=== PATIENT | male | born 1990 | race Caucasian/White ===

== ENCOUNTER 2021-03-01 09:55 | Inpatient (IN) | payer MEDICAID ==
[~2021-03-01] VITALS: Ht 167.6 cm; Wt 84.5 kg
[2021-03-01 10:30] LABS: COVID AG,FIA SOURCE NASOPHARYNGEAL
[2021-03-01 10:40] LABS: AMPHET/METH SCREEN,URINE NEGATIVE (NEGATIVE); BARBITURATE SCREEN, URINE NEGATIVE (NEGATIVE); BENZODIAZEPINES SCREEN,URINE NEGATIVE (NEGATIVE); CANNABINOID SCREEN,URINE NEGATIVE (NEGATIVE); COCAINE SCREEN,URINE NEGATIVE (NEGATIVE); METHADONE SCREEN, URINE NEGATIVE (NEGATIVE); OPIATE SCREEN,URINE NEGATIVE (NEGATIVE)
[2021-03-01 10:41] LABS: PHENCYCLIDINE SCREEN,URINE NEGATIVE (NEGATIVE)
[2021-03-01 11:24] LABS: BASOPHILS % (AUTO) 0.3 % (0.0-2.0); EOSINOPHILS % (AUTO) 0.3 % (1.0-6.0); HEMATOCRIT 49.2 % (41-53); HEMOGLOBIN 16.4 g/dL (13.5-17.5); LYMPHOCYTES # (AUTO) 1.8 K/uL (1.0-4.8); LYMPHOCYTES % (AUTO) 14.4 % (22.0-44.0); MEAN CORPUSCULAR HEMOGLOBIN 31.3 pg (26.0-34.0); MEAN CORPUSCULAR HGB CONC 33.4 G/dL (31.0-37.0); MEAN CORPUSCULAR VOLUME 94 fL (80-100); MONOCYTES % (AUTO) 7.6 % (2.0-9.0); NEUTROPHILS # (AUTO) 9.9 K/uL (1.8-7.7); NEUTROPHILS % (AUTO) 77.4 % (40.0-70.0); PLATELET COUNT (AUTO) 308 K/uL (150-450); RED BLOOD CELL COUNT(AUTO) 5.26 MIL/uL (4.50-5.90); RED CELL DISTRIBUTION WIDTH 13.8 % (11.5-14.5)
[2021-03-01 11:41] LABS: ANION GAP 11 mmol/L (8-16); CALCIUM, TOTAL 9.7 mg/dL (8.8-10.5); CARBON DIOXIDE 30 mmol/L (22-29); CHLORIDE 102 mmol/L (98-107); CREATININE 0.85 mg/dL (0.60-1.30); GLOMERULAR FILTR. RATE CALC > 60 mL/min (>60); GLUCOSE,RANDOM 99 mg/dL (70-110); POTASSIUM 4.4 mmol/L (3.5-5.1); SODIUM SERUM 143 mmol/L (136-145); UREA NITROGEN, BLOOD 8 mg/dL (7-18)
[2021-03-01 11:46] LABS: ALANINE AMINOTRANSFERASE 70 U/L (12-78); ALBUMIN 4.8 g/dL (3.4-5.0); ALKALINE PHOSPHATASE 127 U/L (46-116); ASPARTATE AMINOTRANSFERASE 26 U/L (15-37); BILIRUBIN,TOTAL 0.2 mg/dL (0.1-1.0); TOTAL PROTEIN, SERUM 8.9 g/dL (6.4-8.2)
[2021-03-01] MEDS ORDERED: LORazepam 1 MG TABLET PO ONE (12:15)
[2021-03-01] MEDS ORDERED: NICOTINE 14 MG/24 HOUR PATCH TD ONE (12:15)
[2021-03-01 14:02] VITALS: BP 135/92
[2021-03-01] MEDS ORDERED: PETROLATUM,WHITE 28 GM JELLY TP PRN (16:15)
[2021-03-01] MEDS ORDERED: CloNIDine HCL 0.1 MG TABLET PO PRN (16:15)
[2021-03-01] MEDS ORDERED: DOCUSATE SODIUM 100 MG CAPSULE PO PRN (16:15)
[2021-03-01] MEDS ORDERED: ACETAMINOPHEN 325 MG TABLET PO PRN (16:15)
[2021-03-01] MEDS ORDERED: ONDANSETRON HCL 4 MG TABLET PO PRN (16:15)
[2021-03-01] MEDS ORDERED: ALBUTEROL SULFATE HFA 90 MCG/PUFF 8 GM INHALER IH PRN (16:15)
[2021-03-01] MEDS ORDERED: GuaiFENesin/D-METHORPHAN [SUGAR-FREE] 200-20MG/10 ML SYRUP UDCUP PO PRN (16:15)
[2021-03-01] MEDS ORDERED: MAGNESIUM HYDROXIDE SUSPENSION 30 ML UDCUP PO PRN (16:15)
[2021-03-01] MEDS ORDERED: LOPERAMIDE HCL 2 MG CAPSULE PO PRN (16:15)
[2021-03-01 16:18] VITALS: BP 160/89
[2021-03-01] MEDS: NICOTINE 14 MG/24 HOUR PATCH TD PRN (23:08)
[2021-03-01] MEDS ORDERED: LORazepam 2 MG/ML VIAL ONE (23:34)
[2021-03-01] MEDS ORDERED: HALOPERIDOL LACTATE 5 MG/ML VIAL ONE (23:34)
[2021-03-01] MEDS ORDERED: DiphenhydrAMINE HCL 50 MG/ML VIAL ONE (23:35)
[2021-03-01] MEDS ORDERED: HALOPERIDOL LACTATE 5 MG/ML VIAL IM ONE (23:45)
[2021-03-01] MEDS ORDERED: LORazepam 2 MG/ML VIAL IM ONE (23:45)
[2021-03-01] MEDS ORDERED: DiphenhydrAMINE HCL 50 MG/ML VIAL IM ONE (23:45)
[2021-03-02 06:48] LABS: CHOL/HDL RATIO 5.6 (4.2-7.3)
[2021-03-02 08:00] VITALS: BP 124/71
[2021-03-02] MEDS: NICOTINE 14 MG/24 HOUR PATCH TD PRN (08:53)
[2021-03-02] MEDS ORDERED: PHENYLEPHRINE/SHK LV/MIN OIL/PET 57 GM OINTMENT TP PRN (12:30)
[2021-03-02] MEDS: LORazepam 2 MG TABLET PO PRN (12:44)
[2021-03-02] MEDS: ARIPiprazole 10 MG TABLET PO SCH (12:44)
[2021-03-02] MEDS: PSYLLIUM SEED ORANGE SF 5.8 GM/PACKET PO SCH (13:39)
[2021-03-02 16:11] VITALS: BP 102/67
[2021-03-02] MEDS: ZOLPIDEM TARTRATE 10 MG TABLET PO PRN (20:28)
[2021-03-03] MEDS: LORazepam 2 MG TABLET PO PRN ×3 (00:01→16:47)
[2021-03-03] MEDS: MAG HYDROX/AL HYDROX/SIMETH ES 30 ML SUSPENSION UDCUP PO PRN ×2 (00:28→14:00)
[2021-03-03] MEDS ORDERED: LORazepam 2 MG/ML VIAL IM ONE (01:15)
[2021-03-03] MEDS ORDERED: HALOPERIDOL LACTATE 5 MG/ML VIAL IM ONE (01:15)
[2021-03-03] MEDS ORDERED: DiphenhydrAMINE HCL 50 MG/ML VIAL IM ONE (01:15)
[2021-03-03 01:41] VITALS: BP 118/78
[2021-03-03] MEDS: NICOTINE 14 MG/24 HOUR PATCH TD PRN (08:08)
[2021-03-03] MEDS: ARIPiprazole 10 MG TABLET PO SCH (08:08)
[2021-03-03] MEDS: PSYLLIUM SEED ORANGE SF 5.8 GM/PACKET PO SCH (08:09)
[2021-03-03 08:35] VITALS: BP 120/77
[2021-03-03] MEDS: HALOPERIDOL 5 MG TABLET PO PRN ×2 (11:32)
[2021-03-03 16:10] VITALS: BP 126/76
[2021-03-03] MEDS: IBUPROFEN 400 MG TABLET PO PRN (19:04)
[2021-03-03 20:05] VITALS: BP 120/77
[2021-03-03] MEDS: ZOLPIDEM TARTRATE 10 MG TABLET PO PRN (22:48)
[2021-03-04] MEDS: MAG HYDROX/AL HYDROX/SIMETH ES 30 ML SUSPENSION UDCUP PO PRN ×2 (06:30→10:13)
[2021-03-04] MEDS: IBUPROFEN 400 MG TABLET PO PRN (07:42)
[2021-03-04] MEDS: NICOTINE 14 MG/24 HOUR PATCH TD PRN (07:50)
[2021-03-04] MEDS: PSYLLIUM SEED ORANGE SF 5.8 GM/PACKET PO SCH (08:22)
[2021-03-04] MEDS: ARIPiprazole 10 MG TABLET PO SCH (08:22)
[2021-03-04 09:16] VITALS: BP 131/97
[2021-03-04] MEDS ORDERED: ARIP10TA38 PO (11:31)
[2021-03-04] MEDS: LORazepam 2 MG TABLET PO PRN (12:05)
== END 2021-03-04 14:50 | disposition home or self-care (01) | DRG 750 ==
LOC: EMS 09:58 → 3EC 13:15
DX: F25.0 Schizoaffective disorder, bipolar type (principal); D72.829 Elevated white blood cell count, unspecified; F14.10 Cocaine abuse, uncomplicated; E78.5 Hyperlipidemia, unspecified; F10.10 Alcohol abuse, uncomplicated; F17.210 Nicotine dependence, cigarettes, uncomplicated; Z20.822 Contact with and (suspected) exposure to COVID-19; Z79.899 Other long term (current) drug therapy
CPT/HCPCS: 80053; 80061; 85025; 87426; 99285; G0480; J1200; J1630; J2060

== ENCOUNTER 2021-04-18 16:30 | Emergency (ER) | payer MEDICAID, OTHER ==
[~2021-04-18] VITALS: Ht 167.6 cm; Wt 82.0 kg
[~2021-04-18 16:30] MED LIST: ARIP10TA38 PO
[2021-04-18] MEDS ORDERED: BIOF1TAB8 PO (16:57)
[2021-04-18] MEDS ORDERED: VALP250C48 PO (16:57)
[2021-04-18] MEDS ORDERED: OLAN10TA74 PO (16:57)
[2021-04-18] MEDS ORDERED: HALO5TAB2 PO (16:57)
[2021-04-18 19:40] VITALS: BP 138/92
[2021-04-18] MEDS ORDERED: HydrOXYzine PAMOATE 50 MG CAPSULE PO ONE (19:45)
== END 2021-04-18 20:15 | disposition home or self-care (01) ==
LOC: EMS 16:31
DX: F25.9 Schizoaffective disorder, unspecified (principal); F31.9 Bipolar disorder, unspecified; F17.210 Nicotine dependence, cigarettes, uncomplicated; F14.90 Cocaine use, unspecified, uncomplicated; F12.90 Cannabis use, unspecified, uncomplicated; F19.90 Other psychoactive substance use, unspecified, uncomplicated
CPT/HCPCS: 99284; Z7502; Z7610